=== PATIENT | female | born 1985 | race Caucasian/White ===

== ENCOUNTER 2018-06-16 08:34 | Emergency (ER) | payer MEDICAID, SELFPAY ==
[2018-06-16 08:36] VITALS: BP 150/102; PULSE 93; RESP 16; TEMP 37.1; O2SAT 98; BMI 27.3
--- NOTE | 2018-06-16 09:01 | ED.DCSUM_ITS ---
- ER Visit Summary Date of Service: 06/16/18 Chief Complaint: Left-sided head and neck pain History of Present Illness: The patient is a 33 F w/ hx of migraines. No family history of intracranial bleeds or aneurysms. Patient has had a prior negative CT of the brain. States since yesterday morning she has had sharp shooting pain from her neck into her left eye. It is worse with head movement. There have been times that she has no pain at all. Seems to be worse when she has certain movements of her neck. She denies any numbness. She denies any neurological symptoms whatsoever. No slurred speech. No visual change. No weakness or numbness. She called her primary care physician's office who sent to the ER. She denies this being a thunderclap. She is on no blood thinners. She has had no brain or head trauma. Physical Examination: Well-appearing young female. Vital signs are stable. Blood pressure is elevated at 150/102. She has sunglasses on. She is seated in a darkened room. H EENT exam unremarkable and photophobia. No facial droop. Normal speech. Extraocular motions are intact. Pupils are equal and symmetrical 2 mm. Neck is nontender with normal range of motion. No meningismus. No trauma. Lungs clear to auscultation bilaterally. Heart regular rhythm no murmur. Abdomen is soft and nontender. She is moving all 4 extremities. They are neurovascularly intact. 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 Dorsi and plantar flexion is intact. Full range of motion of both upper and lower extremities. Neurologically she is awake alert. No focal motor or sensory deficits. Fingertip to nose and heel peterson within normal limits. NIH score is 0. She has full flexion-extension and rotation of her neck. Test Results: None Emergency Department Course and Treatment: IM Toradol. Treatment Plan: Clinically the patient has migraines. This is similar presentation to a migraine headache. It is one-sided. She has photophobia. I do not feel the patient needs any imaging at this time. She is completely normal neurologic exam. She will use NSAIDs at home. Follow-up with primary care physician. Disposition: Discharge Impression: Acute left-sided head and neck pain History of migraine headaches This note was generated with [employer] software. It may contain incorrect words, spelling, and punctuation that were not noted in review of the chart prior to signing ED Disposition - Plan for ED Patient: Chief Complaint: Other, Pain/Inj Referrals: Naveen Reyna DO [Primary Care Provider] -
--- NOTE | 2018-06-16 09:01 | ED.DEP ---
ED Disposition - Plan for ED Patient: Disposition: Home or Assisted Living Chief Complaint: Other, Pain/Inj Instructions: ED Headache Migraine Referrals: Naveen Reyna DO [Primary Care Provider] - 3-5 Days if not improving Additional Instructions: Use Motrin and Tylenol for pain. Follow-up your primary care physician if this is not improving. Return to ER if you are feeling much worse.
[2018-06-16] MEDS: Ketorolac 60 MG/2 ML Vial IM (09:04)
[2018-06-16 09:28] VITALS: BP 135/95; PULSE 75; RESP 15; O2SAT 99
== END 2018-06-16 09:30 | disposition home or self-care (01) ==
LOC: ED 09:27
PROVIDERS: Emergency Provider Emergency Medicine; Family Provider Student in an Organized Health Care Education/Training Program; PCP Student in an Organized Health Care Education/Training Program
DX: G43.909 Migraine, unspecified, not intractable, without status migrainosus (principal); Z87.891 Personal history of nicotine dependence
CPT/HCPCS: 96372; 99282

== ENCOUNTER 2019-05-06 22:39 | Emergency (ER) | payer MEDICAID, SELFPAY ==
[2019-05-06 22:40] VITALS: BP 160/106; PULSE 93; RESP 16; TEMP 37; O2SAT 97; BMI 29.2
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
--- NOTE | 2019-05-06 22:58 | ED.DEP ---
ED Disposition - Plan for ED Patient: Instructions: Back Sprain/Strain Referrals: Naveen Reyna DO [Primary Care Provider] -
[2019-05-06] MEDS: Ketorolac 60 MG/2 ML Vial IM (23:07)
== END 2019-05-06 23:19 | disposition home or self-care (01) ==
LOC: ED 22:58
PROVIDERS: Emergency Provider Emergency Medicine; Family Provider Student in an Organized Health Care Education/Training Program; PCP Student in an Organized Health Care Education/Training Program
DX: S39.012A Strain of muscle, fascia and tendon of lower back, initial encounter (principal); X58.XXXA Exposure to other specified factors, initial encounter; Y93.16 Activity, rowing, canoeing, kayaking, rafting and tubing; Y99.8 Other external cause status
CPT/HCPCS: 96372; 99282